=== PATIENT | male | born 1960 | race Caucasian/White ===

== ENCOUNTER 2024-02-04 11:29 | Emergency (ER) | payer OTHER, SELFPAY ==
[2024-02-04 11:46] VITALS: BP 134/77; PULSE 79; RESP 16; TEMP 36; O2SAT 97
--- NOTE | 2024-02-04 11:55 | ED.WOUNDLAC ---
HPI - Wound/Laceration General Chief Complaint: Wound/Laceration Stated Complaint: Lt Knee Injury Due to Fall Time Seen by Provider: 02/04/24 11:55 Source: patient Mode of arrival: ambulatory Limitations: no limitations History of Present Illness HPI narrative: 63-year-old male presents with complaint of drainage and redness to wound of left knee. Patient states that he fell 8 days ago on to left knee causing abrasion. Left knee hit against concrete. Has been keeping clean and dry. Showed a picture of left knee to his daughter today and was told he needed an antibiotic. History of diabetes. Afebrile. All systems reviewed and negative except as noted above. Related Data Home Medications Medication Instructions Recorded Confirmed allopurinol 300 mg tablet 300 mg PO DAILY 02/04/24 02/04/24 amlodipine 10 mg tablet 10 mg PO DAILY 02/04/24 02/04/24 atorvastatin 80 mg tablet 80 mg PO HS 02/04/24 02/04/24 dulaglutide 1.5 mg/0.5 mL 1.5 mg subcut WEEKLY 02/04/24 02/04/24 subcutaneous pen injector ([facility]) furosemide 20 mg tablet 20 mg PO DAILY 02/04/24 02/04/24 gabapentin 300 mg capsule 300 mg PO TID 02/04/24 02/04/24 lisinopril 10 mg tablet 10 mg PO DAILY 02/04/24 02/04/24 metformin 500 mg tablet 1,000 mg PO BID 02/04/24 02/04/24 metoprolol tartrate 75 mg tablet 75 mg PO BID 02/04/24 02/04/24 nitroglycerin 0.4 mg sublingual 0.4 mg sublingual PRN PRN Chest 02/04/24 02/04/24 tablet Pain prasugrel 10 mg tablet 10 mg PO DAILY 02/04/24 02/04/24 venlafaxine 150 mg tablet,extended 150 mg PO DAILY 02/04/24 02/04/24 release 24 hr Allergies Allergy/AdvReac Type Severity Reaction Status Date / Time bee venom protein (honey bee) Allergy Severe Swelling Verified 02/04/24 11:56 [bees] of Lip/Tongue/Throat shellfish derived Allergy Severe Anaphylaxis Verified 02/04/24 11:56 Review of Systems Review of Systems: CONSTITUTIONAL: Denies fever, chills, or sweats. EYES: Denies visual changes, redness, or discharge. ENT: Denies rhinorrhea, congestion, sore throat, or otalgia. CARDIOVASCULAR: Denies chest pain, palpitations, or edema. RESPIRATORY: Denies cough or dyspnea. GASTROINTESTINAL: Denies abdominal pain, nausea, vomiting, or diarrhea. GENITOURINARY: Denies dysuria or hematuria. SKIN: Denies rash or itching. Reports infected abrasion of left knee. MUSCULOSKELETAL: Denies back pain, joint pain, or myalgia. NEUROLOGIC: Denies headache, numbness, or weakness. PSYCHIATRIC: Denies anxiety or depression. All other systems reviewed are negative, except as documented in HPI. PMFSH Comments At time of signature, agree with nursing past medical, surgical, social and family history. There is no relevant family history pertinent to the presenting complaint. Exam Narrative: GENERAL: This is a well-nourished, well-developed patient, in no apparent distress. HEAD: normocephalic, atraumatic. EYES: PERRL. Sclera clear/white. Vision is grossly intact. EARS: External ears normal NOSE: External nose normal NECK: Neck supple, non-tender without lymphadenopathy, masses or thyromegaly. CARDIOVASCULAR: Regular rate and rhythm without murmurs, gallops, or rubs. RESPIRATORY: Clear to auscultation. Breath sounds equal bilaterally. No wheezes, rales, or rhonchi. SKIN: warm, Dry, intact with no suspicious lesions or rash, good texture and turgor. Abrasion to left knee approximate 4 x 5 cm. Scabbing. Surrounding erythema, swelling with tenderness on palpation. No fluctuance. Scant yellow drainage noted. NEURO: awake, alert, and oriented to person, place and time. There were no obvious focal neurologic abnormalities. EXTREMITIES: No joint tenderness, effusion, or edema noted. Course Course Level of Care: Express Care Visit Vital Signs Vital signs: Vital Signs Temperature 36.0 C L 02/04/24 11:46 Pulse Rate 79 02/04/24 11:46 Respiratory Rate 16 02/04/24 11:46 Blood Pressure 134/77 02/04/24 11:46
== END 2024-02-04 12:09 | disposition home or self-care (01) ==
PROVIDERS: Emergency Provider Nurse Practitioner Family
DX: S80.212A Abrasion, left knee, initial encounter (principal); L08.9 Local infection of the skin and subcutaneous tissue, unspecified; W19.XXXA Unspecified fall, initial encounter; G25.81 Restless legs syndrome; E78.00 Pure hypercholesterolemia, unspecified; E11.42 Type 2 diabetes mellitus with diabetic polyneuropathy; I25.2 Old myocardial infarction; K21.9 Gastro-esophageal reflux disease without esophagitis; M19.90 Unspecified osteoarthritis, unspecified site; I20.9 Angina pectoris, unspecified; Z86.16 Personal history of COVID-19
CPT/HCPCS: 99203; G0463